=== PATIENT | female | born 1980 | race African-American/Black ===

== ENCOUNTER 2017-05-07 18:58 | Emergency (ER) | payer OTHER ==
[~2017-05-07] VITALS: Ht 157.5 cm; Wt 70.3 kg
[~2017-05-07 18:58] MED LIST: HYDR25TA4 PO; TERB250T11 PO
--- NOTE | 2017-05-07 19:30 | NUR ---
PT BIB SELF C/O CP SINCE YESTERDAY RADIATING TO BACK, NONPROVOKED WITH ASSOCIATED SOB. ALSO C/O L WRIST PAIN X MONTHS. NO VISIBLE DEFORMITIES. NAD NOTED. RESP APPEARS EVEN UNLABORED. SKIN WARM NONDIAPHORETIC. A/OX4. AMBULATORY WITH STEADY GAIT. IN ER BED 14.
[2017-05-07 19:51] LABS: BASOPHILS % (AUTO) 0.4 % (0.0-2.0); EOSINOPHILS # (AUTO) 0.1 /CMM (0.0-0.7); EOSINOPHILS % (AUTO) 1.7 % (0.0-6.0); HEMATOCRIT 38 % (33-45); HEMOGLOBIN 12.9 g/dL (11.5-14.8); LYMPHOCYTES # (AUTO) 1.6 /CMM (0.8-4.8); LYMPHOCYTES % (AUTO) 32.8 % (20.0-44.0); MEAN CORPUSCULAR HEMOGLOBIN 31 PG (26.0-33.0); MEAN CORPUSCULAR HGB CONC 34 g/dl (31.0-36.0); MEAN CORPUSCULAR VOLUME 90 fL (82-100); MONOCYTES # (AUTO) 0.4 /CMM (0.1-1.30); MONOCYTES % (AUTO) 7.7 % (2.0-12.0); NEUTROPHILS # (AUTO) 2.9 /CMM (1.8-8.9); NEUTROPHILS % (AUTO) 57.4 % (43.0-81.0); PLATELET COUNT (AUTO) 248 /CMM (150-450); RDW COEFFICIENT OF VARIATION 11.8 (11.5-15.0)
[2017-05-07] MEDS ORDERED: ASPIRIN 325 MG TABLET ONE (19:52)
[2017-05-07] MEDS: ASPIRIN 325 MG TABLET PO ONE (19:54)
[2017-05-07 20:00] LABS: CALCIUM, SERUM 8.7 mg/dL (8.5-10.1); CARBON DIOXIDE 33 mmol/L (21-32); CHLORIDE 104 mmol/L (98-107); CREATININE 0.9 mg/dL (0.6-1.3); GLUCOSE 87 mg/dL (74-106); POTASSIUM 3.6 mmol/L (3.5-5.1); SODIUM SERUM 140 mmol/L (136-145); UREA NITROGEN, BLOOD 18 mg/dL (7-18)
[2017-05-07 20:05] LABS: INR 0.96 (0.87-1.13)
[2017-05-07 20:11] LABS: TROPONIN I < 0.017 ng/mL (0.00-0.056)
--- NOTE | 2017-05-07 20:49 | NUR ---
REPORT GIVEN TO JONATHAN MORALES FOR CHERYL
--- NOTE | 2017-05-07 21:58 | NUR ---
Patient discharged to home in stable condition. Written and verbal after care instructions given. Patient verbalizes understanding of instruction. NAD NOTED, AMBULATORY WITH STEADY GAIT.
[2017-05-07 22:00] VITALS: BP 160/118
== END 2017-05-07 22:01 | disposition home or self-care (01) ==
LOC: ER 19:00
DX: R07.89 Other chest pain (principal); M25.532 Pain in left wrist; H92.02 Otalgia, left ear; I10 Essential (primary) hypertension
CPT/HCPCS: 36415; 71010-TC; 80048-TC; 84484-TC; 85025-TC; 85378-TC; 85730-TC; A4606; Z7610